=== PATIENT | male | born 1970 | race Caucasian/White ===

== ENCOUNTER 2019-10-31 09:16 | Inpatient (IN) ==
--- NOTE | 2019-09-21 22:29 | PAT Medication Instructions ---
Medication Instructions Date of Service September 21, 2019 Home Medications naproxen sodium [Aleve] 220 mg PO BID PRN simvastatin 40 mg PO PM ASK your surgeon for instructions naproxen sodium [Aleve] 220 mg PO BID PRN Take evening before surgery simvastatin 40 mg PO PM *NOTHING TO EAT OR DRINK AFTER MIDNIGHT* Other Notes If you have any questions please call us at [phone] or [phone] or [phone] or [phone]
--- NOTE | 2019-09-22 11:52 | Anesthesiology Consultation ---
Date of Service September 22, 2019 Assessment & Plan (1) Encounter for pre-operative examination: Chart Review Chart Review: Acceptable Risk for Surgery (pending pre op testing --labs/ekg/cxr) and Patient seen in Pre Admission Testing Teaching & Discussion Instructed NPO after midnight before surgery, except medications with 15 cc of water. Medication instructions provided according to the PAT guidelines. History Surgery Operation Date: 10/31/19 08:50 Proposed Procedures p Bilateral Total Knee Arthroplasty - Chaevz Lux DO Height/Weight Height: 5 ft 10 in Weight: 135 kg Allergies Allergy/AdvReac Type Severity Reaction Status Date / Time Penicillins Allergy Unknown hives- A Verified 09/16/19 09:51 CHILD Medications Home Medications Medication Instructions Recorded Confirmed Last Taken simvastatin 40 mg PO PM 09/16/19 09/22/19 Unknown Past Medical History Medical History (Updated 09/22/19 @ 11:59 by Louis Turner) Hyperlipidemia Morbid obesity Exercise / Class Metabolic Activity II 4-5 Yardwork/Stairs/Walk up hill Past Surgical History Surgical History History of arthroscopy R/L History of colonoscopy Past Anesthesia History No Hx of Anesthesia Complications and No Family Hx of Anesthesia Complications History of PONV No Hx of PONV and No Hx of Motion Sickness Social History Smoking Status: Never smoker Do You Dip or Chew Tobacco: No Hx Alcohol Use: Yes Alcohol type: beer alcohol intake frequency: a few times a month Hx Substance Use: No Review of Systems Pt denies any recent chest pain, shortness of breath, palpitations, cough, fever or URI. Physical Exam Vital Signs BP: 129/82 P: 71bpm SPO2: 96% RA T: 97.7 F R: 16 Constitutional + obese ENMT Mouth: no dental restorations, no chipped teeth and no loose teeth Thyromental Distance: > or= 3.5 Finger Breadths (4) Mallampati Class: I Neck + thick neck; neck extension not limited Respiratory normal respiratory effort Auscultation: lungs clear to auscultation bilaterally Cardiovascular Rate/Rhythm: regular rate and regular rhythm Heart Sounds: no murmur
--- NOTE | 2019-09-22 12:34 | XRay Report ---
XR chest Pre-admission PA/Lat HISTORY: 49 years-old Male pat preoperative exam. No acute chest complaints COMPARISON: None available TECHNIQUE: PA and lateral views of the chest FINDINGS: Cardiomediastinal and hilar silhouettes are within normal limits. No pneumothorax, pleural effusion, focal airspace consolidation or overt pulmonary edema. Degenerative changes of the shoulders and spin e. IMPRESSION: No acute process. ACT 112: Negative or not required by law. The above report was generated using voice recognition software. It may contain grammatical, syntax o r spelling errors. Electronically signed by: Antonio Zee M.D. 09/22/2019 12:33 PM
[2019-09-22 12:39] LABS: Basophils # (auto) 0.03 K/uL (0-0.2); Basophils % (auto) 0.3 %; Eosinophils # (auto) 0.39 K/uL (0-0.5); Hematocrit (blood only) 44.4 % (42-52); Hemoglobin 14.9 g/dL (14.0-18.0); Immature Granulocytes # (auto) 0.02 K/uL (0.00-0.02); Immature Granulocytes % (auto) 0.2 %; Lymphocytes # (auto) 3.29 K/uL (1.2-3.4); Lymphocytes % (auto) 33.8 %; Mean Corpuscular Hemoglobin 31.1 pg (25-34); Mean Corpuscular Hgb Conc 33.6 g/dL (32-36); Mean Corpuscular Volume 92.7 fL (80-100); Mean Platelet Volume 11.6 fL (7.4-10.4); Monocytes # (auto) 0.63 K/uL (0.11-0.59); Monocytes % (auto) 6.5 %; Neutrophils # (auto) 5.36 K/uL (1.4-6.5); Neutrophils % (auto) 55.2 %; Platelet Count 243 K/uL (130-400); RDW Coefficient of Variation 12.7 % (11.5-14.5); RDW Standard Deviation 43.2 fL (36.4-46.3); Red Blood Count 4.79 M/uL (4.7-6.1); White Blood Count 9.72 K/uL (4.8-10.8)
[2019-09-22 12:46] LABS: Partial Thromboplastin Ratio 0.9; Partial Thromboplastin Time 23.8 Seconds (21.0-31.0); Prothrombin Time 10.6 Seconds (9.0-12.0)
[2019-09-22 13:10] LABS: BUN Creatinine Ratio 13.6 (10-20); Calcium 8.9 mg/dl (8.5-10.1); Creatinine Clr Calc Pharmacy 145.7 ml/min; Est GFR (African American) 118.1; Est GFR (Non-African American) 101.9; Potassium 3.6 mmol/L (3.5-5.1)
--- NOTE | 2019-10-30 16:26 | History & Physical Report ---
Date of Service October 30, 2019 Assessment & Plan (1) Osteoarthritis of knees, bilateral: We will proceed with bilateral total knee arthroplasties. Postoperatively he will be started on aspirin for DVT prophylaxis and kept overnight in the hospital for postoperative medical management. He plans to do outpatient physical therapy upon discharge. Present on Admission?: Yes History of Present Illness Chief Complaint: Primary osteoarthritis of bilateral knees Primary Care Provider: Dean Ward DO Tommie is a pleasant 49-year-old male who is been dealing with chronic increasing bilateral knee pain. X-rays and clinical examination have been diagnostic for primary osteoarthritis of both knees. After failing years of conservative treatment, including multiple injections, he has elected to proceed with bilateral total knee arthroplasties. Allergies Allergy/AdvReac Type Severity Reaction Status Date / Time Penicillins Allergy Unknown hives- A Verified 09/16/19 09:51 CHILD Home Medications Home Medications Medication Instructions Recorded Confirmed Type simvastatin 40 mg PO PM 09/16/19 09/22/19 History Past Med/Surg History Medical History (Updated 09/22/19 @ 11:59 by Louis Turner) Hyperlipidemia Morbid obesity Surgical History History of arthroscopy R/L History of colonoscopy Social History Preferred Language: Irish Communication Ability: Effective Hi Lift Operator Required: No Beliefs That Will Affect Care: None Current Living Situation: Spouse and Family Feels Safe at Home: Yes Smoking Status: Never smoker Second Hand Exposure: No ; Hx Alcohol Use: Yes Alcohol type: beer Hx Substance Use: No Review of Systems All systems reviewed & are unremarkable except as noted in HPI & below Physical Exam Constitutional: WD/WN, vitals as above Eyes: PERRL, conjunctivae normal, anicteric sclerae ENMT: external ear and nose normal, oropharynx normal Neck: trachea midline, no thyromegaly Respiratory: normal respiratory effort Cardiovascular: RRR, no murmur, no edema Gastrointestinal (Abdomen): normal bowel sounds, soft, nontender, no hepatosplenomegaly Musculoskeletal: On physical examination of both knees are similar. There is a trace effusion. There is near full range of motion and no evidence of instability. There is significant tenderness palpation along the medial and lateral joint lines and over the distal femoral condyles. Psychiatric: A+Ox3, euthymic affect Results & Data Diagnostic Findings Radiographs of both knees demonstrate advanced osteoarthritis with joint space narrowing osteophyte formation and [id number] articulation.
[~2019-10-31 09:16] MED LIST: ACETAMINOPHEN 500 MG TAB PO SCH; BUPIVACAINE 0.25% 30 ML VIAL ONE; BUPIVACAINE 0.5 % 5 MG/1 ML PF 10ML VIAL ONE; CEFAZOLIN 3000MG 72.5 ML IV SCH; FAMOTIDINE 20 MG TAB PO SCH; GABAPENTIN 900 MG DOSE PO SCH; LR 500ML BOLUS, THEN 15ML/HR IV SCH; LR 60ML/HR IV SCH; ROPIVACAINE 0.5% HCL/PF 150 MG, BUPIVACAINE 0.5% MPF 30 ML, EPINEPHrine 30MG/30ML (OR U... INSTIL SCH; TRANEXAMIC ACID 1,000 MG **IV Intra-op IV SCH; TRANEXAMIC ACID 1,000 MG **IV Pre-op IV SCH; dexAMETHasone 4 MG TAB PO SCH
--- NOTE | 2019-10-31 10:05 | History & Physical Bridge Note ---
Date of Service October 31, 2019 History & Physical Bridge Note I have examined the patient, reviewed the History & Physical and in the interval since the performance of the History & Physical I have noted the following changes of clinical significance: no changes noted
[2019-10-31] MEDS ORDERED: CEFAZOLIN 3000MG/72.5 ML BAG IV ONE (10:27)
[2019-10-31] MEDS ORDERED: DEXAMETHASONE SOD INJ 4 MG/ML VIAL ONE (10:29)
[2019-10-31] MEDS ORDERED: ONDANSETRON INJ 2 MG/ML 2 ML VIAL ONE (10:29)
[2019-10-31] MEDS ORDERED: PROPOFOL IV EMULSION 10 MG/ML 20 ML VIAL IV ONE ×3 (10:29→15:02)
[2019-10-31] MEDS ORDERED: LIDOCAINE HCL 2% 2 ML VIAL/AMP(20MG/ML) INFIL ONE (10:29)
[2019-10-31] MEDS ORDERED: MIDAZOLAM HCL 1 MG/ML 2ML VIAL ONE ×4 (10:30→12:01)
[2019-10-31] MEDS ORDERED: fentaNYL citrate 100 MCG/2 ML VIAL ONE (10:30)
[2019-10-31] MEDS: CEFAZOLIN IV SCH ×2 (10:32→11:34)
[2019-10-31] MEDS ORDERED: ATROPINE SULFATE 0.1 MG/ML 10ML SYR IV PRN (10:41)
[2019-10-31] MEDS ORDERED: ePHEDrine sulfate 50 MG/ML AMP IV PRN (10:41)
[2019-10-31] MEDS ORDERED: fentaNYL citrate 100 MCG/2 ML VIAL IV PRN (10:41)
[2019-10-31] MEDS ORDERED: ONDANSETRON INJ 2 MG/ML 2 ML VIAL IV PRN ×2 (10:41→16:11)
[2019-10-31] MEDS ORDERED: ORTHO JOINT ANESTHETIC ONE (10:55)
--- NOTE | 2019-10-31 14:29 | Operative Report ---
PG Post Operative Report Pre & Post Diagnosis Operation Date: 10/31/19 11:40 Pre-Op Diagnosis: Osteoarthritis of Knees, Bilateral Post-Op Diagnosis: Osteoarthritis of Knees, Bilateral I identified the patient and participated in the time-out.: Yes Procedure Operation Date: 10/31/19 11:40 Actual Procedures p Bilateral Total Knee Arthroplasty(Bilateral) - Chavez Lux DO Surgeon Chavez Lux DO Associate Store Manager Chavez De Dios PAC Estimated Blood Loss 50 Findings Consistent with Post-Op Diagnosis Specimens Right femoral and tibial bone Left femoral and tibial bone Complications none Disposition Disposition: Recovery Room Indications Tommie is a pleasant 49-year-old male who is been dealing with chronic increasing bilateral knee pain. X-rays and clinical examination were diagnostic for primary osteoarthritis of the knees. After failing conservative treatment, he elected to proceed with bilateral total knee arthroplasties. Description of Procedure Modifier 22: Tommie had a BMI of 42. The case took me about 50% longer than standard knee replacements due to his large soft tissue envelopes and difficulty gaining exposure. Tommie arrived [facility] for the above procedure. He was seen in the preoperative holding area and the operative extremities were identified and signed. He was given a preoperative antibiotic, a spinal anesthetic and an adductor nerve block. He was taken back to the operating room and laid on the table in supine position. He was given basic sedation. The knees were then prepped and draped in sterile fashion. A timeout was done, and the patient and the operative extremities were properly identified. Right Knee Implants used: I used a [employer] total knee arthroplasty system with a size 72.5 femur, 75 tibia, 34 patella, and a size 14 PS plus polyethylene bearing. All components were cemented in place with Palacos G cement. A midline incision was made directly over the patella. Dissection was taken down to the extensor mechanism. A subvastus arthrotomy was used. The medial retinaculum was released and the fat pad was mostly left intact. The knee was flexed and the ACL, PCL, and meniscus were removed. A drill was sent down the center of the femoral canal followed by an intramedullary kiran. Off that kiran a distal femoral cutting block was placed. 9 mm was resected off the distal femur at 5 of valgus. A posterior referencing AP sizing guide was then placed on the distal femur. The femur measured to be a size 72.5. 2 drill holes were placed in 3 of external rotation. A 4-in-1 cutting block was then impacted into place. Anterior posterior and chamfer cuts were then made. The posterior stabilizing box guide was then impacted into place and the box was resected for the posterior stabilizing component. The proximal tibia was then exposed. A drill was sent down the center of the tibial canal followed by an intramedullary kiran. Off that kiran a proximal tibial resection guide was placed. The proximal tibia was then resected. The tibia measured to be a size 75. The tibial plate was then placed in the appropriate rotation and the tibia was punched. The posterior aspect of the knee was then opened up and any additional meniscus fragments and osteophytes were removed. Trial components were then placed. I used a size 14 PS plus polyethylene insert. The knee was brought through a full range of motion and felt to be stable. The patella was then everted and 8 mm was resected off the posterior aspect of the patella. The patella measured to be a size 34. 3 peg holes were then drilled. A trial patella was placed. The knee was once again brought through a full range of motion and felt to be stable. Trial components were then removed. The surrounding soft tissues were injected with 50 cc of an orthopedic pain control cocktail. All components were then cemented into place with Palacos G cement. The final polyethylene insert was then snapped into place and the anterior bar was locked. Once cement was dry the tourniquet was deflated. Hemostasis was obtained. A dilute betadyne lavage was then done for 3 minutes. The joint was then irrigated with normal saline solution. The subvastus arthrotomy was then closed with #1 Vicryl suture. The skin was closed with 2-0 Vicryl, 3-0V lock suture, and gilmer. A soft compressive dressing was placed. Left Knee Implants used: I used a [employer] total knee arthroplasty system with a size 72.5 femur, 71 tibia, 34 patella, and a size 12 PS plus polyethylene bearing. All components were cemented in place with Palacos G cement. A midline incision was made directly over the patella. Dissection was taken down to the extensor mechanism. A subvastus arthrotomy was used. The medial retinaculum was released and the fat pad was mostly left intact. The knee was flexed and the ACL, PCL, and meniscus were removed. A drill was sent down the center of the femoral canal followed by an intramedullary krian. Off that kiran a distal femoral cutting block was placed. 9 mm was resected off the distal femur at 5 of valgus. A posterior referencing AP sizing guide was then placed on the distal femur. The femur measured to be a size 72.5. 2 drill holes were placed in 3 of external rotation. A 4-in-1 cutting block was then impacted into place. Anterior posterior and chamfer cuts were then made. The posterior stabilizing box guide was then impacted into place and the box was resected for the posterior stabilizing component. The proximal tibia was then exposed. A drill was sent down the center of the tibial canal followed by an intramedullary kiran. Off that kiran a proximal tibial resection guide was placed. The proximal tibia was then resected. The tibia measured to be a size 71. The tibial plate was then placed in the appropriate rotation and the tibia was punched. The posterior aspect of the knee was then opened up and any additional meniscus fragments and osteophytes were removed. Trial components were then placed. I used a size 12 PS plus polyethylene insert. The knee was brought through a full range of motion and felt to be stable. The patella was then everted and 8 mm was resected off the posterior aspect of the patella. The patella measured to be a size 34. 3 peg holes were then drilled. A trial patella was placed. The knee was once again brought through a full range of motion and felt to be stable. Trial components were then removed. The surrounding soft tissues were injected with 50 cc of an orthopedic pain control cocktail. All components were then cemented into place with Palacos G cement. The final polyethylene insert was then snapped into place and the anterior bar was locked. Once cement was dry the tourniquet was deflated. Hemostasis was obtained. A dilute betadyne lavage was then done for 3 minutes. The joint was then irrigated with normal saline solution. The subvastus arthrotomy was then closed with #1 Vicryl suture. The skin was closed with 2-0 Vicryl, 3-0V lock suture, and gilmer. A soft compressive dressing was placed. The patient was then transferred to a hospital bed and taken to the postanesthesia care unit in stable condition. They tolerated the procedure well. I attest to the content of the Intraoperative Record and any orders documented therein. Any exceptions are noted below.
--- NOTE | 2019-10-31 15:09 | Anesthesiology Progress Note ---
Date of Service October 31, 2019 Anesthesia Post Procedure Vital Signs Vital Signs: Temp Pulse Resp BP Pulse Ox 10/31/19 09:58 36.6 C 67 20 159/98 H 97 Pain Intensity Bilateral Knee: Pain Intensity: 4 Notes Mental Status: alert / awake / arousable and participated in evaluation Nausea / Vomiting: adequately controlled Pain: adequately controlled Airway Patency, RR, SpO2: stable & adequate BP & HR: stable & adequate Hydration State: stable & adequate Neuraxial Anesthesia: was administered and sensory block is resolving Anesthetic Complications: no major complications apparent
--- NOTE | 2019-10-31 15:31 | XRay Report ---
XR knee RT 1 or 2V routine CLINICAL HISTORY: Surgical Post Op COMPARISON: Knee radiographs July 07, 2019. FINDINGS: Alignment of the total right knee arthroplasty is anatomic. No periprosthetic fracture or unexpected radiopaque foreign body. There are skin gilmer. IMPRESSION: Expected findings following total right knee arthroplasty. ACT 112: Negative or not required by law. Electronically signed by: Guru Peña M.D. 10/31/2019 3:30 PM
--- NOTE | 2019-10-31 15:32 | XRay Report ---
TWO VIEWS LEFT KNEE CLINICAL HISTORY: Postoperative examination. FINDINGS: AP and crosstable lateral portable views of the left knee are obtained. A left knee arthrop lasty is in near anatomic alignment. There has been undersurface remodeling of the patella. No acute fracture is seen. There are expected postoperative changes around the knee including skin clips, soft tissue edema, and subcutaneous gas. IMPRESSION: Expected postoperative changes status post left knee arthroplasty. No acute fracture is s een. ACT 112: Negative or not required by law. Electronically signed by: Todd Flores M.D. 10/31/2019 3:30 PM
[2019-10-31] MEDS ORDERED: SODIUM CHLORIDE 0.9% 1000ML 1,000 ML IV SCH (16:11)
[2019-10-31] MEDS ORDERED: NALOXONE HCL 0.4 MG/1 ML VIAL/CARP IV PRN (16:11)
[2019-10-31] MEDS ORDERED: bisacodyL 10 MG SUPP PR PRN (16:11)
[2019-10-31] MEDS ORDERED: MAGNESIUM HYDROXIDE SUSP 30 ML UDC PO PRN (16:11)
[2019-10-31] MEDS ORDERED: HYDROmorphone INJ 0.5 MG/0.5 ML SYR IV PRN (16:11)
[2019-10-31] MEDS ORDERED: METOCLOPRAMIDE HCL INJ 5 MG/ML 2 ML VIAL IV PRN (16:11)
[2019-10-31] MEDS: KETOROLAC 30 MG/ML VIAL IV SCH ×2 (17:13→23:47)
[2019-10-31] MEDS: CEFAZOLIN 2000MG 2,000 MG/15 ML SYR IV SCH (19:57)
[2019-10-31] MEDS: ACETAMINOPHEN 500 MG TAB PO SCH (19:58)
[2019-10-31] MEDS: SENNA 8.6 MG TAB PO SCH (20:49)
[2019-10-31] MEDS: DOCUSATE SODIUM 100 MG CAP PO SCH (20:49)
[2019-10-31] MEDS: SIMVASTATIN 40 MG TAB PO SCH (20:50)
[2019-10-31] MEDS: ASPIRIN 81 MG ECTAB PO SCH (20:50)
[2019-10-31] MEDS: OXYCODONE HCL IR 5 MG TAB (IMMEDIATE RELEASE) PO PRN (23:52)
[2019-11-01] MEDS: CEFAZOLIN 2000MG 2,000 MG/15 ML SYR IV SCH (04:59)
[2019-11-01] MEDS: KETOROLAC 30 MG/ML VIAL IV SCH ×4 (05:00→23:36)
[2019-11-01] MEDS: ACETAMINOPHEN 500 MG TAB PO SCH ×3 (05:02→21:23)
[2019-11-01 06:35] LABS: Hematocrit (blood only) 37.7 % (42-52); Hemoglobin 12.7 g/dL (14.0-18.0); Mean Corpuscular Hemoglobin 30.5 pg (25-34); Mean Corpuscular Hgb Conc 33.7 g/dL (32-36); Mean Corpuscular Volume 90.6 fL (80-100); Mean Platelet Volume 11.3 fL (7.4-10.4); Platelet Count 227 K/uL (130-400); RDW Coefficient of Variation 12.6 % (11.5-14.5); RDW Standard Deviation 41.5 fL (36.4-46.3); Red Blood Count 4.16 M/uL (4.7-6.1); White Blood Count 25.73 K/uL (4.8-10.8)
[2019-11-01 07:07] LABS: BUN Creatinine Ratio 17.7 (10-20); Calcium 8.8 mg/dl (8.5-10.1); Creatinine Clr Calc Pharmacy 127.7 ml/min; Est GFR (African American) 108.4; Est GFR (Non-African American) 93.5; Potassium 4.1 mmol/L (3.5-5.1)
[2019-11-01] MEDS ORDERED: dexAMETHasone 4 MG TAB PO SCH (08:00)
[2019-11-01] MEDS: ASPIRIN 81 MG ECTAB PO SCH ×2 (09:04→21:24)
[2019-11-01] MEDS: DOCUSATE SODIUM 100 MG CAP PO SCH ×2 (09:04→21:24)
[2019-11-01] MEDS: MULTIVITAMIN TAB PO SCH (09:04)
--- NOTE | 2019-11-01 09:05 | Orthopedic Progress Note ---
Date of Service November 01, 2019 Assessment & Plan (1) History of bilateral knee replacement: Overall he is doing very well. Is not having much pain in his knees. He is on aspirin for DVT prophylaxis. He will be seen by physical therapy today for ambulation and range of motion exercises. We will keep him in the hospital today. We plan to discharge him to home tomorrow. Present on Admission?: Yes Subjective Tommie was seen and examined at bedside this morning. Overall he is doing very well. Is not having much pain in the knees. He was already up and walking around the nurses station. He has no complaints. Physical Exam Musculoskeletal: On physical examination of both knees, the dressings are clean and dry. His legs are out in full extension. He has active dorsiflexion and plantarflexion of both ankles. Sensation is intact throughout. Results & Data ([facility]) Vital Signs (Past 12 Hours) Vital Signs Temp Pulse Resp BP Pulse Ox 11/01/19 08:06 36.6 C 71 16 136/74 92 11/01/19 03:45 36.5 C 71 16 127/73 92 10/31/19 23:50 36.8 C 83 16 113/68 97 Laboratory Results H & H 09/22/19 11/01/19 Range/Units 12:05 06:07 Hgb 14.9 12.7 L (14.0-18.0) g/dL Hct 44.4 37.7 L (42-52) % Coagulation 09/22/19 Range/Units 12:05 INR 1.0 (0.9-1.1) Diagnostic Findings Postoperative x-rays of both knees show the prosthesis to be in anatomic alignment without any evidence of fracture, dislocation, or loosening. PG Care Time/CCT Total # of Minutes Spent Total Time Spent with Patient: Total time spent is greater than 50% in coordination of care (as documented) at patient's floor/unit and/or counseling patient: Coding Level of Care Code None Diagnoses History of bilateral knee replacement Z96.653
[2019-11-01] MEDS: OXYCODONE HCL IR 5 MG TAB (IMMEDIATE RELEASE) PO PRN ×2 (13:32→23:36)
[2019-11-01] MEDS: SENNA 8.6 MG TAB PO SCH (21:23)
[2019-11-01] MEDS: SIMVASTATIN 40 MG TAB PO SCH (21:23)
[2019-11-02] MEDS: ACETAMINOPHEN 500 MG TAB PO SCH (05:39)
[2019-11-02] MEDS: KETOROLAC 30 MG/ML VIAL IV SCH (05:40)
[2019-11-02] MEDS: DOCUSATE SODIUM 100 MG CAP PO SCH (07:36)
[2019-11-02] MEDS: MULTIVITAMIN TAB PO SCH (07:36)
[2019-11-02] MEDS: ASPIRIN 81 MG ECTAB PO SCH (07:36)
[2019-11-02] MEDS: OXYCODONE HCL IR 5 MG TAB (IMMEDIATE RELEASE) PO PRN (07:38)
--- NOTE | 2019-11-02 07:47 | Orthopedic Progress Note ---
Date of Service November 02, 2019 Assessment & Plan (1) History of bilateral knee replacement: Overall he is doing very well. He is not having much pain in his knees. He will be seen by physical therapy today for ambulation and range of motion exercises. He can be discharged home later this morning. [facility] is [facility]. He will follow-up with orthopedics in 2 weeks. He is on aspirin for DVT prophylaxis. Present on Admission?: Yes Subjective Tommie was seen and examined at bedside this morning. Overall is doing very well. He was walking around the [employer] station yesterday. He is not having much pain in his knees. He is happy with his progress to this point. He has no complaints. Physical Exam Musculoskeletal: On physical examination of both knees, the dressings have been changed. The incisions are clean and dry. His legs are out in full extension. He has active dorsiflexion and plantarflexion of both ankles. Results & Data ([facility]) Vital Signs (Past 12 Hours) Vital Signs Temp Pulse Resp BP Pulse Ox 11/02/19 05:55 36.7 C 72 16 153/85 H 92 11/01/19 22:56 36.6 C 67 16 130/69 94 PG Care Time/CCT Total # of Minutes Spent Total Time Spent with Patient: Total time spent is greater than 50% in coordination of care (as documented) at patient's floor/unit and/or counseling patient: Coding Level of Care Code None Diagnoses History of bilateral knee replacement Z96.653
--- NOTE | 2019-11-02 07:52 | Discharge Summary ---
Date of Service November 02, 2019 Admission HPI Per Admitting Provider Tommie is a pleasant 49-year-old male who is been dealing with chronic increasing bilateral knee pain. X-rays and clinical examination have been diagnostic for primary osteoarthritis of both knees. After failing years of conservative treatment, including multiple injections, he has elected to proceed with bilateral total knee arthroplasties. Principal Diagnosis Bilateral knee replacements Discharge Data Allergies Allergy/AdvReac Type Severity Reaction Status Date / Time Penicillins Allergy Unknown hives- A Verified 10/31/19 09:56 CHILD Consultations 10/31/19 16:11 Consult Case Management - Discharge Planning Routine Procedures Performed Operation Date: 10/31/19 11:40 Actual Procedures p Bilateral Total Knee Arthroplasty(Bilateral) - Chavez Lux DO Ordered Studies 10/31/19 11:12 US - OR guided needle placemen Routine Hospital Course (1) History of bilateral knee replacement: On October 31, [address] [facility] and underwent bilateral knee replacements without complication. He had a spinal anesthetic and bilateral adductor nerve blocks. Postoperatively he was started on aspirin for DVT prophylaxis and discharged to general orthopedic floors. His hospital course was uneventful. On postop day #1 his H&H was stable and his pain was well controlled. He was able to participate well with physical therapy doing ambulation and range of motion exercises. On postop day #2 the dressings were changed. He was seen once again by physical therapy. His pain was well controlled. He was then discharged to home with [place]. He will follow-up with orthopedics in 2 weeks. Total Time Total Time Spent Total Time Spent (In Minutes): 20 Discharge Plan Discharge Items Patient Disposition: Home - Home Health Services Reason For Visit: BILATERAL KNEE DEGENERATIVE JOINT DISEASE Discharge Diagnosis: Bilateral total knee arthroplasty Activity: As commented below Non-emergency contact: Surgeon Call non-emergency contact if: your wound has increased redness and your wound has increased drainage Follow-up/Referrals: Dean Ward DO [Primary Care Provider] - Diet: Regular Addtl Attending Provider Instructions: Activity and Therapy Recommendations: * If you are using [facility] then therapy will be provided at your home until they feel you have accomplished all of your goals. * If you are using [facility] then Physical Therapy will be provided until they feel you are ready to start Outpatient Physical Therapy. * If you are not using home therapy then Outpatient Physical Therapy should start about 3-5 days from your day of surgery. Therapy will last about 6-10 weeks * It is important not to put a pillow under your knee when you are relaxing or sleeping. It is just as important to make sure you are getting your knee perfectly straight as it is to regain your knee bend. * You were shown a series of exercises in the hospital. Do these exercises three times each day including the exercises you were shown in physical therapy. * Get up and walk several times each day. For the first four weeks, try not to stand or walk for more than one hour at a time. If you do stand or walk for more than one hour, you will not hurt anything, but your leg will likely swell. * As you feel comfortable, you may change from the walker or crutches to a cane and then to independent walking. Medications: * Narcotic You will likely be sent home from the hospital with a prescription for the narcotic pain medication that worked best throughout your stay. * Aspirin Most patients will be required to take Aspirin 81mg twice a day for 6 weeks after surgery. This is obtained [id number] and a prescription is not necessary. * Other medications may be prescribed for specific circumstances. If you have any questions, please call the office at . * Resume previous home medications unless otherwise instructed TEDs/Elastic Stockings: The white elastic stockings help limit swelling and prevent blood clots from forming in your legs.~ The more you wear them, the more they work. Wear them for six weeks. Dressing Care: If the incision is not draining then you may leave the gilmer open to air. If there is a little bit of drainage or if the gilmer are getting stuck on your clothing then cover the incision with a dry dressing. The gilmer will be removed at your 2 week follow-up appointment. Showering: You may shower 5 days from the day of surgery. Let the soapy shower water run over the gilmer and pat them dry. Do not scrub or soak the incision. Things To Watch For: * Drainage from the incision site that occurs more than one week after your surgery. * Increased redness at the incision site. * Fever above 102 degrees Fahrenheit. * Unusual chest pain or shortness of breath. * Call [facility] at with any of the above problems Follow-Up Visit: Follow-up with Dr. Lux 2-3 weeks after your day of surgery. An appointment was probably scheduled when you signed-up for surgery in the office. If you have any questions call Office Instructions: More detailed instructions as well as Frequently Asked Questions were provided in a folder by our office when you signed-up for surgery. Please review these instructions when you get home. If you have any further questions or concerns, please feel free to call the office at [phone] Pending Studies at Discharge: No Stand-Alone Forms: My [facility] TouchMail, Smoking Cessation Medications and DC Order Prescriptions: New oxycodone 5 mg Tablet 5 mg PO Q4H PRN (Reason: pain) Qty: 60 RF: 0 aspirin [Ecotrin Low Strength] 81 mg Tablet,Delayed Release (Dr/Ec) 81 mg PO BID 42 Days Qty: 0 RF: 0 Continued simvastatin 40 mg Tablet 40 mg PO PM RF: 0 Discharge Orders: Discharge Order (Routine); Ordered 11/02/19 Ordered By: Chavez Lux Admission Data Admit Date/Time: 10/31/19 15:00 Attending Provider: Chavez Lux Admit Provider: Chavez Lux Primary Care Provider: Dean Ward Coding Level of Care Code D/C Day Management <30 mins Diagnoses History of bilateral knee replacement Z96.653
== END 2019-11-02 09:35 | disposition home health service (06) | DRG 462 ==
LOC: ASU 09:16 → 3E 15:00